=== PATIENT | female | born 1980 | race Caucasian/White ===

== ENCOUNTER 2018-04-01 11:20 | Emergency (ER) | payer BC ==
[~2018-04-01] VITALS: Ht 152.4 cm; Wt 59.0 kg
[2018-04-01] MEDS ORDERED: ACETAMINOPHEN 325 MG TAB PO ONE (11:45)
[2018-04-01] MEDS ORDERED: cloNIDine HCL 0.1 MG TAB PO ONE (15:00)
[2018-04-01 15:18] VITALS: BP 147/78
== END 2018-04-01 15:20 | disposition home or self-care (01) ==
LOC: ER 11:20
DX: M79.672 Pain in left foot (principal); I10 Essential (primary) hypertension; Z88.6 Allergy status to analgesic agent; Z88.8 Allergy status to other drugs, medicaments and biological substances
CPT/HCPCS: 73630; 99284; L3260